=== PATIENT | female | born 1980 | race Asian ===

== ENCOUNTER 2017-09-19 08:00 | Outpatient (CLI) | payer BC | END 2017-09-19 08:01 | disposition home or self-care (01) | LOC: BICULT 08:00 | PROVIDERS: ATTEND Family Medicine | DX: T83.32XA Displacement of intrauterine contraceptive device, initial encounter (principal); N83.201 Unspecified ovarian cyst, right side ==

== ENCOUNTER 2023-03-29 08:03 | Outpatient (CLI) | payer BC ==
[2023-03-29 08:33] LABS: BHCG - Serum Negative (NEGATIVE); Pregs Control Background? CLEAR/WHITE (CLR/WHITE); Pregs Control Bar Appear? YES (CONTROL BAR)
[2023-03-29] MEDS ORDERED: Iopamidol 300 61% 30 ML VIAL ONE (11:08)
== END 2023-03-29 08:04 | disposition home or self-care (01) ==
LOC: RAD 08:03
PROVIDERS: ATTEND Student in an Organized Health Care Education/Training Program
DX: N97.9 Female infertility, unspecified (principal)
CPT/HCPCS: 58340; 74740; 84703